=== PATIENT | female | born 1975 | race Caucasian/White ===

== ENCOUNTER 2021-07-15 20:02 | Emergency (ER) | payer OTHER ==
[~2021-07-15] VITALS: Ht 167.6 cm; Wt 58.4 kg
[~2021-07-15 20:02] MED LIST: ALBUTEROL SULF8.5 GM INH; MACROBID 100 M100 MG PO; PRENATAL TABLE1 EAC1 PO; TYLENOL WITH C1 EACH; ZYRTEC10 MG PO
--- OUTSIDE RECORDS SUMMARY | 2021-07-15 20:10 | XMS ---
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 [facility] VISIT COUNT (12 MO.) 1 NETTIE Hayes TOTAL 1 NOTE: Visits indicate total known visits. ED/UCC VISIT TRACKING (12 MO.) 07/15/2021 20:03 NETTIE [facility] [place] TYPE: Emergency COMPLAINT: - LT ARM SWELLING INPATIENT VISIT TRACKING (12 MO.) No inpatient visits to display in this time frame [email or web address]
[2021-07-15] MEDS ORDERED: DOXYCYCLINE HY100 MG PO (22:23)
== END 2021-07-15 22:29 | disposition home or self-care (01) ==
LOC: ED 20:02
DX: M79.632 Pain in left forearm (principal); M79.89 Other specified soft tissue disorders; J45.909 Unspecified asthma, uncomplicated; F17.200 Nicotine dependence, unspecified, uncomplicated; Z88.0 Allergy status to penicillin; Z79.899 Other long term (current) drug therapy; Z79.51 Long term (current) use of inhaled steroids
CPT/HCPCS: 73090; 93971; 99284-25